=== PATIENT | female | born 1980 | race African-American/Black ===

== ENCOUNTER 2020-11-08 16:56 | Emergency (ER) | payer MEDICAID ==
[~2020-11-08] VITALS: Ht 172.7 cm; Wt 69.0 kg
[2020-11-08 17:06] VITALS: BP 125/79
[2020-11-08] MEDS ORDERED: TETANUS, DIPHTHERIA, PERTUSSIS VAC/PF 0.5ML (>7YR OLD) IM ONE (18:30)
[2020-11-08] MEDS ORDERED: KETOROLAC 15MG/ML VIAL IM ONE (18:30)
[2020-11-08] MEDS ORDERED: BO1 TP (18:57)
[2020-11-08] MEDS ORDERED: HYDR-4001 MT (18:57)
== END 2020-11-08 19:09 | disposition home or self-care (01) ==
LOC: ER 16:56
DX: S31.512A Laceration without foreign body of unspecified external genital organs, female, initial encounter (principal); W22.8XXA Striking against or struck by other objects, initial encounter; Y93.89 Activity, other specified; Y92.018 Other place in single-family (private) house as the place of occurrence of the external cause; Z23 Encounter for immunization
CPT/HCPCS: 12011; 81025; 90471; 90715; 96372; 99284; J1885

== ENCOUNTER 2022-01-13 04:25 | Emergency (ER) | payer MEDICAID ==
[~2022-01-13] VITALS: Ht 172.7 cm; Wt 59.0 kg
[~2022-01-13 04:25] MED LIST: BO1 TP; HYDR-4001 MT
[2022-01-13] MEDS ORDERED: KETOROLAC 60MG/2ML VIAL IM ONE (05:00)
[2022-01-13] MEDS ORDERED: IBUP-2030 MT (05:49)
[2022-01-13] MEDS ORDERED: T3 PO (05:56)
[2022-01-13 06:00] VITALS: BP 118/86
[2022-01-13] MEDS ORDERED: HYDROCODONE/ACETAMINOPHEN 5/325MG TABLET PO ONE (06:00)
== END 2022-01-13 06:15 | disposition home or self-care (01) ==
LOC: ER 05:15
DX: S00.03XA Contusion of scalp, initial encounter (principal); S30.0XXA Contusion of lower back and pelvis, initial encounter; R07.81 Pleurodynia; M79.661 Pain in right lower leg; Y04.2XXA Assault by strike against or bumped into by another person, initial encounter; Y00.XXXA Assault by blunt object, initial encounter; Y93.89 Activity, other specified; Y92.59 Other trade areas as the place of occurrence of the external cause
CPT/HCPCS: 70450; 71101; 72100; 96372; 99284; J1885

== ENCOUNTER 2022-02-07 09:44 | Emergency (ER) | payer MEDICAID, OTHER ==
[~2022-02-07] VITALS: Ht 165.1 cm; Wt 60.0 kg
[~2022-02-07 09:44] MED LIST changes: +IBUP-2030 MT; +T3 PO
[2022-02-07] MEDS ORDERED: AMOX-424 MT (10:45)
[2022-02-07] MEDS ORDERED: HYDROCODONE/ACETAMINOPHEN 5/325MG TABLET PO ONE (10:45)
[2022-02-07] MEDS ORDERED: AMOXICILLIN/POTASSIUM CLAVULANATE 875/125MG TAB PO ONE (10:45)
[2022-02-07 10:57] VITALS: BP 152/101
== END 2022-02-07 11:14 | disposition home or self-care (01) ==
LOC: ER 10:06
DX: R68.84 Jaw pain (principal); K08.89 Other specified disorders of teeth and supporting structures; F12.10 Cannabis abuse, uncomplicated; Z79.899 Other long term (current) drug therapy
CPT/HCPCS: 99283

== ENCOUNTER 2023-03-16 21:41 | Emergency (ER) | payer MEDICAID, OTHER ==
[~2023-03-16] VITALS: Ht 172.7 cm; Wt 56.1 kg
[~2023-03-16 21:41] MED LIST changes: +AMOX-424 MT; +CLIN-194 MT; +ONDA4TAB50 MT
[2023-03-16 22:49] VITALS: O2SAT 99
[2023-03-16 23:04] LABS: BASOPHILS % 0.7 % (0.0-2.0); EOSINOPHILS % 2.9 % (0.0-5.0); HEMATOCRIT. 32.2 % (36.0-48.0); HEMOGLOBIN. 11.1 g/dL (12.0-16.0); LYMPHOCYTES % 29.7 % (20.0-50.0); MEAN CORPUSCULAR HEMOGLOBIN 34.4 pg (28.0-32.0); MEAN CORPUSCULAR VOLUME 100.1 fL (81.0-99.0); MEAN PLATELET VOLUME 7.2 fl (7.4-10.4); MONOCYTES % 9.5 % (2.0-8.0); NEUTROPHILS % 57.2 % (40.0-76.0); PLATELET 268 x1000/uL (130-400); RED BLOOD CELL COUNT 3.22 mill/uL (4.2-5.4); RED CELL DISTRIBUTION WIDTH 13.8 % (11.6-14.6)
[2023-03-16 23:16] LABS: CHLORIDE 108 mEq/L (98-107)
[2023-03-16 23:40] LABS: HCG SCREEN NEGATIVE
[2023-03-17 03:30] VITALS: BP 144/79
[2023-03-17] MEDS ORDERED: ONDANSETRON 4MG ODT PO NR (03:30)
[2023-03-17] MEDS ORDERED: KETOROLAC 60MG/2ML VIAL IM NR (03:30)
[2023-03-17] MEDS ORDERED: LOPERAMIDE HCL 2MG CAPSULE PO NR (03:30)
[2023-03-17 03:33] LABS: CLARITY URINE CLEAR (CLEAR); COLOR URINE YELLOW (YELLOW); KETONES URINE NEGATIVE (NEGATIVE); LEUKOCYTE ESTERASE URINE TRACE (NEGATIVE); NITRITE URINE NEGATIVE (NEGATIVE); OCCULT BLOOD URINE NEGATIVE (NEGATIVE); PROTEIN URINE NEGATIVE (NEGATIVE); SPECIFIC GRAVITY URINE 1.018 (1.005-1.030); UROBILINOGEN URINE 0.2 E.U./dL (0.2-1.0)
[2023-03-17] MEDS ORDERED: NITR-87 MT (06:00)
[2023-03-17] MEDS ORDERED: POLY17PO3 MT (06:00)
[2023-03-17 06:09] VITALS: PULSE 78; RESP 16; TEMP 98.2
== END 2023-03-17 06:10 | disposition home or self-care (01) ==
LOC: ER 21:41
DX: R19.7 Diarrhea, unspecified (principal); F12.10 Cannabis abuse, uncomplicated
CPT/HCPCS: 80053; 84703; 83880; 83690; 85025; 36415; 93005; 99285; 81003; 74176; 93970; 96372; Q0162; J1885; Z7610